=== PATIENT | female | born 1990 | race Caucasian/White ===

== ENCOUNTER 2022-11-15 09:19 | Day surgery (SDC) | payer OTHER ==
[~2022-11-15] VITALS: Ht 160 cm; Wt 119.3 kg
[2022-11-15] MEDS ORDERED: LIDOCAINE 2% 100 MG/5 ML UJET TP ONE (11:46)
[2022-11-15] MEDS ORDERED: fentaNYL citrate 0.05 MG/ML VIAL ONE (11:46)
[2022-11-15] MEDS ORDERED: fentaNYL citrate 0.05 MG/ML VIAL IVP ONE (12:40)
== END 2022-11-15 13:06 | disposition home or self-care (01) ==
LOC: MOR 09:19 → MMU 09:19 → MOR 13:06
PROVIDERS: ATTEND Internal Medicine Gastroenterology
DX: K62.5 Hemorrhage of anus and rectum (principal); K64.8 Other hemorrhoids; K62.9 Disease of anus and rectum, unspecified; Z20.822 Contact with and (suspected) exposure to COVID-19
CPT/HCPCS: 45350; 87426; J3010

== ENCOUNTER 2024-06-22 10:17 | Emergency (ER) | payer OTHER ==
[~2024-06-22] VITALS: Ht 160 cm; Wt 111.6 kg
[2024-06-22 10:27] VITALS: BP 119/56; PULSE 92; RESP 18; TEMP 98.2; O2SAT 96
[2024-06-22] MEDS: ACETAMINOPHEN EXTRA STRENGTH 500 MG TAB PO ONE (11:36)
[2024-06-22] MEDS: BACITRACIN OINT 500 UNITS/GM PKT TP ONE (11:41)
[2024-06-22] MEDS ORDERED: BACI-418 TP (12:15)
[2024-06-22] MEDS ORDERED: IBUP-2213 PO (12:15)
== END 2024-06-22 12:49 | disposition home or self-care (01) ==
LOC: MED 10:17
DX: S02.2XXA Fracture of nasal bones, initial encounter for closed fracture (principal); I10 Essential (primary) hypertension; Z79.899 Other long term (current) drug therapy; Z88.5 Allergy status to narcotic agent; W55.03XA Scratched by cat, initial encounter; Y93.89 Activity, other specified; Y92.89 Other specified places as the place of occurrence of the external cause; Y99.8 Other external cause status
CPT/HCPCS: 70160; 90471; 90715; 99283